=== PATIENT | female | born 1990 | race Caucasian/White ===

== ENCOUNTER 2019-08-28 15:46 | Inpatient (IN) ==
[2019-08-28] MEDS ORDERED: NS 1,000 ML IV ONE ×3 (16:08→18:40)
[2019-08-28 16:09] LABS: URINE SOURCE CLEAN CATCH
[2019-08-28 16:13] LABS: BILIRUBIN URINE NEGATIVE (NEGATIVE); BLOOD URINE SMALL (NEGATIVE); COLOR YELLOW; GLUCOSE URINE NEGATIVE (NEGATIVE); KETONE URINE NEGATIVE (NEGATIVE); LEUKOCYTES URINE LARGE (NEGATIVE); NITRITE URINE POSITIVE (NEGATIVE); PH URINE 6.5; PROTEIN URINE 30 mg/dL (NEGATIVE); SP GRAVITY URINE 1.018; TURBIDITY URINE HAZY (CLEAR); UROBILINOGEN URINE 4 mg/dL (NORMAL)
[2019-08-28 16:23] LABS: BASO# 0.02 X1000 (0.0-0.2); BASO% 0.2 % (0.0-0.8); EOS# 0.03 X1000 (0.0-0.7); EOS% 0.3 % (0.0-10.0); HEMATOCRIT 38.8 % (37.0-47.0); IMM GRAN# 0.02 X1000 (0.0-0.04); IMM GRAN% 0.2 % (0.0-0.5); LYMPH# 1.99 X1000 (1.2-3.4); LYMPH% 18.2 % (20.5-51.1); MCH 30.7 PG (27-31); MCHC 33.5 g/dL (33-37); MCV 91.7 FL (81-99); MONO# 1.28 X1000 (0.11-0.59); MONO% 11.7 % (1.7-9.3); MPV 10.1 FL (7.4-10.4); NEUT% 69.4 % (42.2-75.2); PLT 202 X1000 (130-400); RBC 4.23 XMIL (4.2-5.4); RDW 12.5 % (11.5-14.5); WBC 10.94 X1000 (4.8-10.8)
[2019-08-28 16:31] LABS: UR EPITHELIAL CELLS <10 /HPF (<10); URINE BACTERIA 4+ /HPF; URINE RBC <10 /HPF (<10); URINE WBC TNTC /HPF (<10)
[2019-08-28] MEDS ORDERED: DILAUDID IV ONE (16:36)
--- NOTE | 2019-08-28 16:36 | Diag Imaging Result Doc PS360 ---
EXAM: FLAT/UPRIGHT ABD/1 VIEW CHEST - 08/28/2019 HISTORY: right flank pain TECHNIQUE: Portable supine and upright abdomen one view chest COMPARISON: None. FINDINGS: There is a large amount retained fecal debris in the colon and rectum suggesting constipation. There is borderline gaseous distention of a few small bowel loops at the left midabdomen. There is no free air identified. There are surgical clips at the right upper quadrant. There is apparent lumbar levo rotatory scoliosis noted. Upright chest shows normal heart size. Lungs appear clear. There is no pleural effusion or pneumothorax identified. IMPRESSION: Evidence of constipation. Nonspecific borderline gaseous distention of a few small bowel loops at the left midabdomen. No evidence of acute cardiopulmonary disease. Electronically signed by Hank Dobbs 08/28/2019 4:34 PM
[2019-08-28 16:37] LABS: INR 1.11; PROTIME 14.5 Seconds (11.0-16.0)
[2019-08-28 16:38] LABS: PTT 35.1 Seconds (22.3-41.8)
[2019-08-28 16:47] LABS: URINE CASTS NONE SEEN; URINE CRYSTALS NONE SEEN; URINE YEAST NONE SEEN
[2019-08-28 16:48] LABS: AGAP 11; ALB/GLOB RATIO 1.4; ALBUMIN 4.3 g/dL (3.5-5.0); ALKALINE PHOSPHATASE 74 U/L (32-104); BUN 7 mg/dL (8-22); CALCIUM 8.7 mg/dL (8.8-10.2); CHLORIDE 99 mmol/L (98-107); CK PROFILE 82 U/L (24-173); COSMO 269; CREATININE 0.6 mg/dL (0.5-0.9); ESTIMATED GFR > 60; GLUCOSE 110 mg/dL (70-104); GOT 31 U/L (10-30); GPT 26 U/L (10-36); POTASSIUM 4.1 mmol/L (3.5-5.1); SODIUM 135 mmol/L (136-145); TCO2 25 mmol/L (25-35); TOTAL BILIRUBIN 1.37 mg/dL (0.20-1.00); TOTAL PROTEIN 7.4 g/dL (6.3-8.3)
--- NOTE | 2019-08-28 17:33 | Diag Imaging Result Doc PS360 ---
EXAM: CT RENAL STONE SEARCH - 08/28/2019 HISTORY: right flank pain TECHNIQUE: CT renal stone search without contrast COMPARISON: 01/25/[address] abdomen/pelvis with contrast from [facility] FINDINGS: There are nonobstructing stones in the bilateral kidneys. There is mild right hydronephrosis. There is no obstructing renal stone identified. There is no evidence of bowel obstruction. There is a large amount retained fecal debris in the colon. The appendix is unremarkable. There is no free air identified. The gallbladder is surgically absent. There is apparent small right ovarian cyst. There is a small amount of free fluid in the posterior pelvis. IMPRESSION: Nonobstructing stones in bilateral kidneys. Mild right hydronephrosis, no discrete etiology for which is apparent. Considerations might include recently passed stone from the right and right pyelonephritis. Apparent constipation. This exam was performed using automated exposure control, adjustment of mA or kV according to patient size, and/or use of iterative reconstruction technique. Electronically signed by Hank Dobbs 08/28/2019 5:30 PM
--- NOTE | 2019-08-28 18:24 | PROVIDER DOCUMENTATION ---
This chart was entered by Jesica Rivera Scribe, acting as scribe for Thony Oliveros DO. HPI-General Adult - General Chief Complaint: Flank Pain Stated Complaint: KIDNEY PAIN Time Seen by Provider: 08/28/19 16:00 Source: patient Allergies/Adverse Reactions: Patient Allergies Allergy/AdvReac Type Severity Reaction Status Date / Time prochlorperazine edisylate * AdvReac Mild Unknown Verified 08/12/12 18:16 [From Compazine] prochlorperazine maleate * AdvReac Mild Unknown Verified 08/12/12 18:16 [From Compazine] Home Medications: Home Medication List Medication Instructions Recorded Confirmed Last Taken Type Citalopram Hydrobromide 1 tab PO DAILY 11/18/18 11/18/18 Unknown History [Citalopram HBr] Clonazepam 1 tab PO Q12H PRN 11/18/18 11/18/18 Unknown History Phenazopyridine HCl [Pyridium] 200 mg PO TID #6 tab 11/18/18 Unknown Rx Sulfamethoxazole/Trimethoprim 1 ea PO BID #10 tab 11/18/18 Unknown Rx [Bactrim Ds Tablet] - History of Present Illness -Gen Adult Nature of Presenting Problems: 29 yowf c/o chills, feeling hot, rt flank pain radiating to low back starting when she got off work last night. pt took ibuprofen w/no relief. pt mother sts had pylonephritis last yr and sts symptoms are similar. pt sx choley. last BM was yesterday and normal. pt last voided in er. pt also has left calf pain on mvmt. denies nvd, cp and sob. Onset/Duration: reports: last night Timing: reports: still present Context/Activities at Onset: reports: light activity Review of Systems - Adult - REVIEW OF SYSTEMS - ADULT Constitutional: reports: see HPI, chills, other (feels hot). denies: fatique, night sweats Eyes: reports: no symptoms reported Ears, Nose, Mouth & Throat: reports: no symptoms reported Cardiovascular: reports: no symptoms reported. denies: chest pain, edema, palpitations Respiratory: reports: no symptoms reported. denies: dyspnea on exertion, shortness of breath, wheezing Gastrointestinal: reports: see HPI. denies: diarrhea, nausea, rectal bleeding Genitourinary: reports: no symptoms reported, flank pain (rt) Musculoskeletal: reports: see HPI, back pain (low back), frequent leg cramps (left calf pain). denies: joint swelling Integumentary: reports: no symptoms reported Neurological: reports: no symptoms reported Psychiatric: reports: no symptoms reported Endocrine: reports: no symptoms reported Hematologic/Lymphatic: reports: no symptoms reported Allergic/Immunologic: reports: no symptoms reported All Other Systems: Reviewed and Negative Past History - Adult - PAST MEDICAL HISTORY-ADULT Review of Records: reports: Nursing Assessment Review, Medications Reviewed, Social history reviewed & non-contributory. Major Childhood Illnesses: reports: denies history Cardiovascular: reports: denies history Respiratory: reports: denies history Gastrointestinal: reports: denies history Obstetrical/Gynecological: reports: denies history Genitourinary: reports: chronic UTI's, other (pyleonephritis) Musculoskeletal: reports: denies history Neurological: reports: denies history Endocrine/Immune: reports: denies history Other Conditions: reports: denies history - PRIOR SURGERIES/PROCEDURES Surgical/Procedure History: reports: cholecystectomy - IMMUNIZATION STATUS Childhood Immunizations: See Nurse Assessment Flu Vaccine: See Nurse Assessment - FAMILY HISTORY Family History: reviewed, not pertinent - SOCIAL HISTORY Smoking: non-smoker Substance Use: marijuana Physical Exam-General - PHYSICAL EXAM-ADULT Initial Vital Signs Reviewed: Yes - CONSTITUTIONAL General Appearance: alert, mild distress, other (101.2 temp 1550). negative: lethargic, slow to respond, obtunded - EYES Eyes: PERRL/EOMI, pink conjunctivae - HEAD, EARS, NOSE, MOUTH & THROAT HENMT: normocephalic/atraumatic, moist mucous membranes, normal ENT inspection - NECK Neck: non-tender, full range of motion, supple, normal inspection - RESPIRATORY Respiratory: chest non-tender, lungs clear, normal breath sounds - CARDIOVASCULAR Cardiovascular: normal peripheral pulses, no edema, no gallop, no JVD, no murmur , tachycardia. negative: regular rate, rhythm, JVD, bradycardia - GASTROINTESTINAL (ABDOMEN) Abdominal Exam: normal bowel sounds, soft, no organomegaly, no pulsatile mass, tenderness (rlq, rt flank to palp). negative: non tender, guarding, rigid, rebound - LYMPHATIC Lymphatic: no adenopathy - MUSCULOSKELETAL Back Exam: normal inspection, no vertebral tenderness, CVA tenderness (rt sided to palp). negative: no CVA tenderness, decreased range of motion, ecchymosis, swelling, vertebral tenderness Extremity: normal range of motion, calf tenderness (achillies tendon pain on palp and mvmt.). negative: non-tender, normal inspection, no calf tenderness, deformity, erythema, inflammation, swelling Peripheral Pulses: radial (R): 2+, radial (L): 2+ - SKIN Integumentary: normal color, normal turgor, warm/dry - NEUROLOGIC Neurologic: grossly normal, no motor/sensory deficits - PSYCHIATRIC Psych/Mental Status: normal mood/affect, normal thought content, normal thought process, oriented x 3 Progress - PLAN OF CARE/RESULTS Progress/Plan/Lab Results: Vital Signs - 8 hr 08/28/19 15:50 Temperature 101.2 F H Pulse Rate 107 H Respiratory Rate 18 Blood Pressure 112/72 O2 Sat by Pulse Oximetry 100 Bedside Urine ED: Urine Bedside Start: 08/28/19 16:05 Freq: Status: Active Protocol: Activity Type Activity Date Activity User E-Sign Co-Sign Detail Recorded Client Recorded Date Recorded By Document 08/28/19 16:05 [id number] 08/28/19 16:06 [id number] 08/28/19 16:05 Point of Care [Bedside Point of Care] -Lot # [id number] - Results Negative -Control Line Visible? Yes Orders Category Date Time Status Cardiac Monitoring DIRECTED Care 08/28/19 15:54 Active IV Insertion ORDERED Care 08/28/19 15:54 Active Notify MD of + Sepsis Screen NOW Care 08/28/19 15:54 Active Notify Physician As Ordered Care 08/28/19 15:54 Active CHEST-1 VIEW [RAD] Stat Exams 08/28/19 15:54 Stop Req FLAT/UPRIGHT ABD/1 VIEW CHEST [RAD] Stat Exams 08/28/19 16:05 Ordered BLOOD CULTURE [BLDCUL] Stat Lab 08/28/19 15:54 Uncollected CBC WITH DIFF [HEME] Stat Lab 08/28/19 15:54 Uncollected CBC WITH ELECTRONIC DIFF [HEME] Stat Lab 08/28/19 16:05 Uncollected CK PROFILE [SP CHEM] Stat Lab 08/28/19 15:54 Uncollected COMPREHENSIVE METABOLIC PANEL [CHEM] Stat Lab 08/28/19 15:54 Uncollected COMPREHENSIVE METABOLIC PANEL [CHEM] Stat Lab 08/28/19 16:05 Ordered LACTATE, PLASMA [CHEM] Lab 08/28/19 16:00 Uncollected LACTATE, PLASMA [CHEM] Lab 08/28/19 19:00 Uncollected LACTATE, PLASMA [CHEM] Lab 08/28/19 22:00 Uncollected TEST-URINE [PREG] Stat Lab 08/28/19 16:06 Uncollected PROTIME WITH INR [COAG] Stat Lab 08/28/19 15:54 Uncollected PTT [COAG] Stat Lab 08/28/19 15:54 Uncollected TROPONIN T Stat Lab 08/28/19 15:54 Uncollected UA NIMS W/REFLEX CULT [URINALYSIS] Stat Lab 08/28/19 16:06 Uncollected URINALYSIS W/POSS RFLX CULT [URINALYSIS] Stat Lab 08/28/19 15:58 Ordered Oxygen Device Stat Oth 08/28/19 15:54 Active Result Diagrams: 08/28/19 16:09 08/28/19 16:09 - XRAY 1 XRAY Study: Abdomen Impression: Abnormal, See EMR Report (EXAM: FLAT/UPRIGHT ABD/1 VIEW CHEST - 08/28/2019 HISTORY: right flank pain TECHNIQUE: Portable supine and upright abdomen one view chest COMPARISON: None. FINDINGS: There is a large amount retained fecal debris in the colon and rectum suggesting constipation. There is borderline gaseous distention of a few small bowel loops at the left midabdomen. There is no free air identified. There are surgical clips at the right upper quadrant. There is apparent lumbar levo rotatory scoliosis noted. Upright chest shows normal heart size. Lungs appear clear. There is no pleural effusion or pneumothorax identified. IMPRESSION: Evidence of constipation. Nonspecific borderline gaseous distention of a few small bowel loops at the left midabdomen. No evidence of acute cardiopulmonary disease. Electronically signed by Hank Dobbs 08/28/2019 4:34 PM) Comparison with other Films: no prior study - CT/MRI 1 CT Study: Renal Stone Impression: Abnormal, See EMR Report (EXAM: CT RENAL STONE SEARCH - 08/28/2019 HISTORY: right flank pain TECHNIQUE: CT renal stone search without contrast COMPARISON: 01/25/[address] abdomen/pelvis with contrast from [facility] FINDINGS: There are nonobstructing stones in the bilateral kidneys. There is mild right hydronephrosis. There is no obstructing renal stone identified. There is no evidence of bowel obstruction. There is a large amount retained fecal debris in the colon. The appendix is unremarkable. There is no free air identified. The gallbladder is surgically absent. There is apparent small right ovarian cyst. There is a small amount of free fluid in the posterior pelvis. IMPRESSION: Nonobstructing stones in bilateral kidneys. Mild right hydronephrosis, no discrete etiology for which is apparent. Considerations might include recently passed stone from the right and right pyelonephritis. Apparent constipation. This exam was performed using automated exposure control, adjustment of mA or kV according to patient size, and/or use of iterative reconstruction technique. Electronically signed by Hank Dobbs 08/28/2019 5:30 PM) - CONSULTS/PCP/HOSPITALIST Notification #1 *Consult/PCP/Hospitalist*: Dr Jones Time Discussed: 18:23 Consult Disposition: Will see in ED Departure - Departure Date of Disposition Decision: 08/28/19 Time of Disposition Decision: 18:24 DIAGNOSIS: Pyelonephritis Disposition: ADMITTED INPATIENT 09 Certified Medical Emergency: Emergent Condition: Serious Referrals and Follow-Ups: None,PCP [Primary Care Provider] - - Critical Care Note This patient required my direct & personal management of CC.: No Attestation - Physician/ FREDDY Attestation Patient care was provided by Advanced Practice Provider:: No The physician spent face to face time with patient:: Yes Advanced Practice Provider documentation review:: Supervising physician onsite and consulted in the evaluation and care of this patient. The physician did have a face to face encounter with the patient. This chart was documented by the indicated scribe, (Jesica Rivera Scribe) and accurately reflects the services I performed and decisions made by me, Thony Oliveros DO, as attested by the provider's signature.
[2019-08-28] MEDS: DILAUDID IV PRN ×2 (19:19→22:36)
[2019-08-28] MEDS: ZOFRAN IV PRN ×2 (19:19→23:15)
[2019-08-28] MEDS: ZOSYN 4.5 GM in NS 50 ML IV SCH (19:26)
--- NOTE | 2019-08-28 19:29 | HISTORY AND PHYSICAL ---
CHIEF COMPLAINT: Right abdominal flank pain and fever. HISTORY OF PRESENT ILLNESS: This is a 29-year-old female with a past medical history of depression, and pyelonephritis 1 year ago on the right side, who presented to the emergency department with a chief complaint of abdominal pain and also fever. Apparently, everything started yesterday with some chills and then during the night, she started complaining of abdominal pain located in the right flank and it was not radiating at that time. Today, the pain got worse and she presented to the emergency department, where we found out that this patient had a temperature of 101.2 degrees and a pulse over 107, blood pressure seems to be stable at 112/72. Abdominal x-ray showed evidence of constipation and some borderline gaseous distention of a few small bowel loops. Renal CT scan showed nonobstructing renal stones bilaterally, mild right hydronephrosis, but no discrete etiology for which is apparent. Considerations might include recent passed stone from the right and right pyelonephritis. We have also a WBC of 10.9 with a normal kidney function and a urine analysis that showed a large amount of WBC and 4+ bacteria with positive nitrites. This patient will be admitted due to pyelonephritis. She denies diarrhea, nausea, vomiting, headache, chest pain, shortness of breath. She is still complaining of dysuria, but she has suprapubic pain and her urine odor is really strong. REVIEW OF SYSTEMS: All the 14 point of review of systems were reviewed. All of them negative except as per HPI. PAST MEDICAL HISTORY: Pyelonephritis 1 year ago and depression. PAST SURGICAL HISTORY: Laparoscopic-assisted cholecystectomy on 08/13/2012. PAST FAMILY HISTORY: Noncontributory. SOCIAL HISTORY: She denies tobacco abuse, drug use. Occasional drinking socially. PHYSICAL EXAMINATION: VITAL SIGNS: Temperature 101.2 degrees, pulse 107, respiratory rate 18, blood pressure 112/72, oxygen saturation 100% on room air. HEENT: Head normocephalic, no trauma. PERRLA. NECK: Is supple. No JVD. No masses. Central trachea. CHEST: Clear to auscultation. No wheezing. No rales. ABDOMEN: Tenderness to palpation at the level of the right flank with positive CVA tenderness, no signs of peritoneal irritation. EXTREMITIES: No edema, no clubbing, no cyanosis. NEUROLOGICAL: The patient is alert. She is oriented x3. No focal deficits. LABORATORY: WBC 10.9, hemoglobin 13, hematocrit 38.8, platelets 202,000. Sodium 135, potassium 4.1, chloride 99, bicarbonate 25, BUN 7, creatinine 0.6, glucose 110, calcium 8.7. ASSESSMENT AND PLAN: 1. Right pyelonephritis. I will put this patient on IV fluids. She already received 2 boluses of 1 L each. I will also put this patient on a liquid diet since she is hungry. We already collected blood culture and urine culture as well. I will start with Zosyn 4.5 every 6 hours. We have a renal CT scan that showed nonobstructing renal stones bilaterally, mild right hydronephrosis, but no evidence of occlusion. Consideration might include recent passed stone from the right and right pyelonephritis, we will monitor this patient closely. As per the patient, she never had a history of kidney stone, so probably this patient should be evaluated by Urology Department as an outpatient. 2. Depression. I will continue with her home medications. She has been taking said Celexa 40 mg daily. This patient will be admitted to the medical floor. She will be placed on IV fluids and pain medication, nausea medication as well, and IV antibiotics. We will monitor this patient closely. I do not think she needs telemetry at this time. She will be placed also on a full liquid diet for now. cc: Anton Grubbs MD
[2019-08-28] MEDS: TYLENOL PO PRN (19:30)
[2019-08-28] MEDS: TORADOL IV PRN (19:31)
[2019-08-28] MEDS: CELEXA PO SCH (21:34)
[2019-08-29] MEDS: ZOSYN 4.5 GM in NS 50 ML IV SCH ×5 (02:15→21:11)
[2019-08-29] MEDS: TYLENOL PO PRN ×2 (03:48→15:13)
[2019-08-29] MEDS: DILAUDID IV PRN ×5 (03:52→22:20)
[2019-08-29 08:02] LABS: AGAP 7; ALB/GLOB RATIO 1.2; ALBUMIN 3.2 g/dL (3.5-5.0); ALKALINE PHOSPHATASE 72 U/L (32-104); BUN 3 mg/dL (8-22); CALCIUM 7.7 mg/dL (8.8-10.2); CHLORIDE 104 mmol/L (98-107); COSMO 269; CREATININE 0.6 mg/dL (0.5-0.9); ESTIMATED GFR > 60; GLUCOSE 101 mg/dL (70-104); GOT 41 U/L (10-30); GPT 40 U/L (10-36); POTASSIUM 3.6 mmol/L (3.5-5.1); SODIUM 136 mmol/L (136-145); TCO2 25 mmol/L (25-35); TOTAL BILIRUBIN 1.79 mg/dL (0.20-1.00); TOTAL PROTEIN 5.8 g/dL (6.3-8.3)
[2019-08-29 08:29] LABS: BASO# 0.01 X1000 (0.0-0.2); BASO% 0.1 % (0.0-0.8); EOS# 0.06 X1000 (0.0-0.7); EOS% 0.6 % (0.0-10.0); HEMATOCRIT 32.5 % (37.0-47.0); HEMOGLOBIN 10.6 g/dL (12.0-16.0); LYMPH# 1.68 X1000 (1.2-3.4); LYMPH% 16.6 % (20.5-51.1); MCH 30.6 PG (27-31); MCHC 32.6 g/dL (33-37); MCV 93.9 FL (81-99); MONO# 1.59 X1000 (0.11-0.59); MONO% 15.7 % (1.7-9.3); MPV 10.2 FL (7.4-10.4); NEUT# 6.78 X1000 (1.4-6.5); PLT 167 X1000 (130-400); RBC 3.46 XMIL (4.2-5.4); RDW 12.6 % (11.5-14.5); WBC 10.12 X1000 (4.8-10.8)
[2019-08-29] MEDS: LOVENOX SUBQ SCH ×2 (08:29→08:37)
[2019-08-29] MEDS: ZOFRAN IV PRN ×4 (08:29→22:21)
[2019-08-29] MEDS ORDERED: MIRALAX PO SCH (09:00)
[2019-08-29] MEDS: TORADOL IV PRN ×2 (10:55→19:33)
[2019-08-29] MEDS: METAMUCIL PO SCH ×2 (15:08→20:28)
[2019-08-29] MEDS: NS 1,000 ML IV SCH (15:08)
--- NOTE | 2019-08-29 15:30 | PROGRESS NOTE ---
DATE: 08/29/2019 SUBJECTIVE: This patient states that she is feeling better. She has right pyelonephritis. She is getting IV antibiotics. She is still having nausea and vomiting, but she is not having fever. The last episode was yesterday in the afternoon at 103.1. OBJECTIVE: Vital Signs: Temperature 97.7 degrees, pulse 70, respiratory rate 15, blood pressure 104/62, oxygen saturation 100% on room air. HEENT: Head normocephalic. No trauma. PERRLA. Neck: Supple. No JVD. No masses. Central trachea. Chest: Clear to auscultation. No wheezing. No rales. Abdomen: Soft. Tenderness to palpation at the level of the right flank. Positive CVA tenderness. No signs of peritoneal irritation. Extremities: No edema. No clubbing. No cyanosis. Neurological: The patient is alert. She is oriented x3. No focal deficits. LABORATORY: WBC 10.1, hemoglobin 10.6, hematocrit 32.5, platelet 167,000. Sodium 136, potassium 3.6, chloride 104, bicarbonate 25, BUN 3, creatinine 0.6, glucose 101, calcium 7.7. AST 41, ALT 40, alkaline phosphatase 72, albumin 3.2. ASSESSMENT AND PLAN: 1. Right pyelonephritis. Continue with IV fluids, pain medication, and antibiotics. She is feeling a little bit better but she is complaining of nausea and vomiting. She does have known obstructing stones bilaterally and mild right hydronephrosis, no etiology for which is apparent. It could be a recent stone that just passed or right pyelonephritis and likely it is the last one. Since this patient has been having right hydronephrosis and kidney stones, probably she will benefit from being evaluated by Urology Department in the morning. This is the second time that this patient has had pyelonephritis on the same side. I am not sure if she has some stricture or abnormality in the urethra or kidney. 2. Constipation. I have switched the MiraLAX to Metamucil. We will continue to monitor. 3. Depression. Continue home medication. She has been taking Celexa 4 mg p.o. daily. 4. A urine culture showed gram-negative simeon, so for now we will continue with Zosyn and IV fluids. cc: Anton Grubbs MD
[2019-08-29] MEDS: CELEXA PO SCH (20:28)
[2019-08-30] MEDS: TORADOL IV PRN ×2 (01:34→14:41)
[2019-08-30] MEDS: ZOSYN 4.5 GM in NS 100 ML IV SCH ×3 (01:34→18:13)
[2019-08-30] MEDS: ZOFRAN IV PRN ×2 (01:39→05:07)
[2019-08-30] MEDS: DILAUDID IV PRN ×3 (01:39→08:37)
[2019-08-30] MEDS: NS 1,000 ML IV SCH ×2 (03:02→14:40)
[2019-08-30] MEDS ORDERED: NS 1,000 ML ONE (03:06)
[2019-08-30 07:00] LABS: BASO# 0.01 X1000 (0.0-0.2); BASO% 0.1 % (0.0-0.8); EOS# 0.01 X1000 (0.0-0.7); EOS% 0.1 % (0.0-10.0); LYMPH# 1.33 X1000 (1.2-3.4); LYMPH% 16.2 % (20.5-51.1); MCH 30.5 PG (27-31); MCHC 32.4 g/dL (33-37); MCV 94.2 FL (81-99); MONO# 0.65 X1000 (0.11-0.59); MONO% 7.9 % (1.7-9.3); MPV 10.2 FL (7.4-10.4); NEUT# 6.19 X1000 (1.4-6.5); NEUT% 75.7 % (42.2-75.2); PLT 179 X1000 (130-400); RBC 3.61 XMIL (4.2-5.4); RDW 12.3 % (11.5-14.5); WBC 8.19 X1000 (4.8-10.8)
[2019-08-30 07:43] LABS: AGAP 9; ALB/GLOB RATIO 1.3; ALBUMIN 3.5 g/dL (3.5-5.0); ALKALINE PHOSPHATASE 66 U/L (32-104); BUN 6 mg/dL (8-22); CALCIUM 8.5 mg/dL (8.8-10.2); CHLORIDE 101 mmol/L (98-107); COSMO 275; CREATININE 0.5 mg/dL (0.5-0.9); ESTIMATED GFR > 60; GLUCOSE 89 mg/dL (70-104); GOT 25 U/L (10-30); GPT 32 U/L (10-36); POTASSIUM 4.1 mmol/L (3.5-5.1); SODIUM 139 mmol/L (136-145); TCO2 29 mmol/L (25-35); TOTAL PROTEIN 6.3 g/dL (6.3-8.3)
[2019-08-30] MEDS ORDERED: SODIUM CHLORIDE 0.9% INJ PRN ×2 (07:56→08:25)
[2019-08-30] MEDS ORDERED: PHENERGAN IV PRN (07:56)
[2019-08-30] MEDS: PHENERGAN IV PRN ×2 (08:36→14:41)
--- NOTE | 2019-08-30 09:26 | PROGRESS NOTE ---
DATE: 08/30/2019 SUBJECTIVE: She has no primary care physician. She had right abdominal, flank pain, and fever. A 29-year-old with past medical history of depression, pyelonephritis 1 year ago on the right side, presented to the emergency department with chief complaint of abdominal pain and fever. Apparently, everything started yesterday, the day before admission, on 08/27/2019. Some chills during the night. Started complaining of abdominal pain. Renal CT showed nonobstructing renal stones bilaterally, mild right hydronephrosis, but no discrete etiology for infection. Considerations are possibly, she has passed a stone recently, right pyelonephritis. She has been complaining of a headache and a lot of pain. She still complains of a lot of nausea. She has had nausea almost continuous for 48 hours. I think we are going to need to stop the Dilaudid, and change her to something else. She is having a hard time keeping liquids down. Her flank pain feels better. OBJECTIVE: Vital Signs: Temperature 97.5 degrees, pulse 85, respirations 18, blood pressure 118/70. HEENT: Pupils are equal and round. Lungs: Clear in all lung merlos. Cardiovascular: Regular rhythm and rate without murmur or S3. Abdomen: Soft. Skin: Seems to be warm and dry. ASSESSMENT AND PLAN: 1. Right pyelonephritis. Continue intravenous antibiotics. Her white count has come down to 8190. Hemoglobin and hematocrit are stable. Hematocrit 34, hemoglobin 11. This nausea, I suspect may be related to her getting Dilaudid 1 mg every 3 hours. I think we are going to have to change it to something else. Will try the Phenergan, and see what else we can do. 2. Depression. 3. Anxiety. Will try some tramadol by mouth. She still has the Toradol. Renal function looks good. She is on a full liquid diet still. cc: Domo Velez MD
[2019-08-30] MEDS: METAMUCIL PO SCH ×2 (10:59→21:53)
[2019-08-30] MEDS: LOVENOX SUBQ SCH (10:59)
[2019-08-30] MEDS: ULTRAM PO PRN ×2 (12:35→18:12)
[2019-08-30] MEDS: PYRIDIUM PO SCH ×3 (15:16→22:00)
[2019-08-30] MEDS ORDERED: PYRIDIUM PO SCH (17:00)
[2019-08-30] MEDS ORDERED: TORADOL IV PRN (18:45)
--- NOTE | 2019-08-30 19:21 | CONSULTATION ---
DATE OF CONSULTATION: 08/30/2019 HISTORY OF PRESENT ILLNESS: This is a 29-year-old female with history of urinary tract infections in the past who was admitted on 08/28/2019 with fever, right flank pain and severe headache. She reports recent urinary tract infection treated with antibiotics. She presented on 08/28/2019 with 2 days of right-sided flank pain, which was achy in quality, moderate to severe in quality. It did not radiate. Nothing made it better. Nothing made it worse. She had associated fever to 101. She had associated nausea as well as a headache. Upon evaluation, she had a CT abdomen and pelvis, renal stone search which revealed a 5 mm right renal stone, 4 mm left renal stone, and mild right hydronephrosis. She denies history of urolithiasis in the past. She is currently complaining of headache and severe nausea. She reports her pain has responded to Dilaudid but has not relieved it entirely. PAST MEDICAL HISTORY: UTIs, depression. PAST SURGICAL HISTORY: Laparoscopic cholecystectomy. HOME MEDICATIONS: Citalopram, clonazepam. FAMILY HISTORY: Positive for urolithiasis in her mother. SOCIAL HISTORY: Denies tobacco or illicit drug use. Occasional alcohol. REVIEW OF SYSTEMS: Reviewed and 12 systems negative with the exception to the HPI. PHYSICAL EXAMINATION: Vital signs: T 97.5 degrees, P 87, BP 118/70. General: Pleasant female that is ill-appearing due to headache who requests for her lights to be turned down and noise minimized. HEENT: Normocephalic, atraumatic. Cardiovascular: Regular rate and rhythm. Pulmonary: Bilateral breath sounds. Abdomen: Mildly tender to palpation in the right upper quadrant. No peritoneal signs. No involuntary guarding. Back: Mild right CVA tenderness. Genitourinary: Bladder is nontender to palpation. Pelvic examination: Deferred at time of this visit. Dermatologic: Multiple tattoos. No evidence of rashes. Neurologic: Alert and oriented x3. Neuropsychiatric: Appropriate mood and affect. PERTINENT LABORATORY DATA: White cell count is 8000, hematocrit 34,000, creatinine is 0.5. Urinalysis on 08/28/2019 is positive for 4+ bacteria, too numerous to count white cells, red cells. MICROBIOLOGY: Her urine culture is growing E coli. PERTINENT IMAGES: CT of the abdomen and pelvis renal stone search on 08/28/2019 as per HPI above. I reviewed it personally, and again it showed 5 mm right renal stone, 4 mm left renal stone, mild right hydronephrosis. ASSESSMENT AND PLAN: A 29-year-old female with history of urinary tract infections who has right pyelonephritis. She has fever, right flank pain. I discussed with the patient that her right renal stone was likely the source of her infection. We discussed that it does not cause any obstruction, and her hydronephrosis is from pyelonephritis rather than obstructing stone. I have discussed with the patient that she is febrile, although improving on broad-spectrum antibiotic, and if we were to perform an emergent ureteroscopy with laser lithotripsy. We would risk retrograde flow of bacteria into her blood stream and hence making her worse before she would get better. Since her stone is nonobstructing, I recommended 10 to 14 days of antibiotic treatment appropriate for culture and then set her up on an outpatient basis for right extracorporeal shockwave lithotripsy. The patient states that her flank pain is somewhat tolerable, but she complains more of the headache. She also reports occasional dysuria and urgency but not much urine coming out with urge. I discussed that those were likely bladder spasms related to her urinary tract infection and that Pyridium would help with that. Side effects were explained. PLAN: 1. Pyridium 200 mg 3 times a day as needed. 2. Agree with antibiotics and pain control. Recommend aggressive IV hydration. 3. No need for emergent urologic intervention needed given that she does not have obstructing stones, and the mild hydronephrosis is from the pyelonephritis itself as stated above. After she is over her UTI, I will be happy to see her in clinic on outpatient basis and then set her up for right extracorporeal shockwave lithotripsy if she so desires. cc: Schuyler Bangura MD
[2019-08-30] MEDS: TYLENOL PO PRN (21:54)
[2019-08-30] MEDS: CELEXA PO SCH (21:59)
[2019-08-31] MEDS: ZOSYN 4.5 GM in NS 100 ML IV SCH ×4 (00:33→14:26)
[2019-08-31] MEDS: ULTRAM PO PRN ×2 (00:36→06:04)
[2019-08-31] MEDS: TYLENOL PO PRN (04:28)
[2019-08-31] MEDS: NS 1,000 ML IV SCH ×2 (04:30→06:32)
[2019-08-31 08:16] VITALS: BP 112/73
--- NOTE | 2019-08-31 09:22 | PROGRESS NOTE ---
DATE: 08/31/2019 SUBJECTIVE: Ms. Byrne reports her headache is markedly improved. Her flank pain is nearly resolved. She denies fevers overnight. Her urine culture came back as Escherichia coli, and her blood culture is preliminary negative after 48 hours. OBJECTIVE: Vital Signs: Temperature 98.5 degrees, pulse 67, BP 109/62. General: No acute distress. Abdomen: Nontender, nondistended. Back: No CVA tenderness. PERTINENT LABORATORY DATA: None this morning. PERTINENT IMAGING: None. ASSESSMENT: A 29-year-old female with right pyelonephritis, mild hydronephrosis, and bilateral renal stones. I have re-educated the patient on the fact that we should treat her Escherichia coli urinary tract infection with 10 to 14 days of antibiotics, and I will be happy to see her next week in clinic, at which point we can discuss right extracorporeal shockwave lithotripsy to address the 5 mm right renal stone as it was likely the culprit for urinary tract infection. She voiced understanding. PLAN: 1. No intervention is needed at this time from a urologic standpoint. 2. I will plan on seeing her in clinic next week sometime to set her up for right extracorporeal shockwave lithotripsy as long as her urine is free from infection. cc: Schuyler Bangura MD
[2019-08-31] MEDS: LOVENOX SUBQ SCH (09:35)
[2019-08-31] MEDS: PYRIDIUM PO SCH ×2 (09:35→14:26)
[2019-08-31] MEDS: METAMUCIL PO SCH (09:35)
--- NOTE | 2019-08-31 16:19 | DISCHARGE SUMMARY ---
ADMISSION DATE: 08/28/2019 DISCHARGE DATE: 08/31/2019 Ms. Byrne was admitted on 08/28/2019. She has no primary care physician. She had complained of right abdominal flank pain, costovertebral angle pain. A 29-year-old female with past medical history of depression, pyelonephritis about a year ago on the right side, who presented to the emergency department with chief complaint of abdominal pain, also fever. Apparently everything started the day before admission, some chills and then during the night started complaining of abdominal pain located in the right flank, not radiating. The pain had gotten worse and so came through the emergency room had a temperature of 101.2 degrees, pulse was 107, blood pressure was stable at 112/72. Abdominal x-ray showed evidence of constipation, some borderline gaseous distension, a few small bowel loops of bowel. Renal CT showed nonobstructing renal stone bilaterally, mild right hydronephrosis, but no discrete etiology was apparent. Considerations thought that maybe she might have passed a recent stone. PAST MEDICAL HISTORY: Pyelonephritis and depression. PAST SURGICAL HISTORY: Laparoscopic-assisted cholecystectomy on 08/13/2012. ADMISSION DIAGNOSES: 1. Right pyelonephritis. Given IV fluids and antibiotics. She was also complaining of a headache. 2. Headache, which sounded consistent with migraine headache. She was getting pain medicine, getting Dilaudid. She developed more nausea, and the headache pain did not resolve. We backed off on the Dilaudid, and the headache seemed to improve. 3. Constipation. She was given a bowel regimen, and this is improved. Renal CT scan done on 08/28/2019 showed nonobstructing stones of bilateral kidneys, some mild right hydronephrosis. No discrete etiology was apparent. Considerations might include recently passed stone for her right pyelonephritis, and then they could appreciate constipation as well. Dr. Schuyler Bangura of Urology was consulted. He discussed that the right renal stone was likely source of infection. Discussed that it does not cause any obstruction and her hydronephrosis is from the pyelonephritis rather than obstructing stone. Continued her broad-spectrum antibiotics. Dr. Bangura was concerned, so he performed an emergent ureteroscopy with laser lithotripsy, and she would be well covered, but would risk retrograde flow bacteria into her bloodstream and hence make the condition worse. Since the stone is nonobstructing, he said he wanted 10 to 14 days of antibiotic treatment. Her cultures showed no growth from the blood cultures. The urine showed E coli, greater than 100,000, and it was negative for extended-spectrum beta-lactamase producing. It was sensitive really to cefazolin, and it was resistant to Levaquin, sensitive to nitrofurantoin, sensitive to Bactrim. Antibiotics while in the hospital was on Zosyn, and she improved and wanted to go home. DISPOSITION: Plan on sending her home on 08/31/2019. DISCHARGE MEDICATION: I will put her on Keflex 500 mg t.i.d. for another 10 days. We will give her some Ultram for pain. She is on clonazepam 1 tablet p.o. q.12 h. (home medicine). She is on citalopram 1 a day as well; that is the Celexa 40 mg q.p.m. FOLLOW-UP: She will follow up with Dr. Bangura in a couple weeks. cc: Domo Velez MD
== END 2019-08-31 17:39 | disposition home or self-care (01) | DRG 690 ==
LOC: ED 15:46 → SUATTDRO 19:57 → 3N 19:57
PROVIDERS: ATTEND Emergency Medicine